=== PATIENT | female | born 1960 | race Caucasian/White ===

== ENCOUNTER 2016-06-29 10:39 | Emergency (ER) | payer BC, OTHER ==
[~2016-06-29] VITALS: Ht 157.5 cm; Wt 80.5 kg
[2016-06-29 10:42] VITALS: Ht 157.5 cm; Wt 80.5 kg
[2016-06-29] MEDS ORDERED: ALBUTEROL 0.5% (NEB) 2.5 MG/0.5 ML AMP INH STA (10:48)
[2016-06-29] MEDS ORDERED: predniSONE 20 MG TAB PO STA (10:48)
[2016-06-29] MEDS ORDERED: IPRATROPIUM (NEB) 0.5 MG/2.5 ML AMP INH STA (10:48)
--- NOTE | 2016-06-29 11:21 | RADRPT ---
PROCEDURE: Chest x-ray CLINICAL INDICATION: Asthma TECHNIQUE: Chest single view COMPARISON: None FINDINGS: The heart is normal in size. The pulmonary vessels are normal in caliber. There is a questionable 6 mm right upper lung nodule. Lungs otherwise clear. The costophrenic angles are sharp. The visua lized bony thorax is unremarkable. IMPRESSION: 1. Questionable 6 mm right upper lung nodule. Recommend a follow-up study. If this density persis ts it should be further evaluated with chest CT. 2. Otherwise no acute cardiopulmonary disease RPTAT: HH .Hema Poe MD, Date Time Electronically viewed and signed by .Hema Poe MD, on 06/29/2016 11:21 .W/
[2016-06-29] MEDS ORDERED: ALBU8.5H3 INH (11:44)
--- NOTE | 2016-06-29 11:44 | ERD ---
ER Documentation Chief Complaint Date/Time DATE: 06/29/16 TIME: 11:40 Chief Complaint SOB AFTER "INHALING A LOT OF BLEACH" WHILE CLEANINGAPPROX 45 MINUTES AGO HPI This is a [age]-year-old female who presents to the emergency room for evaluation of mild shortness of breath. The patient states that she was cleaning a trash can and put bleach in the trash can and states that she was inhaling bleach and began to feel short of breath. She denies any headache, nausea or vomiting associated with this and came to the ER for evaluation of her shortness of breath. She denies any aggravating or relieving factors. ROS All systems reviewed and are negative except as per history of present illness. Medications Home Meds No Active Prescriptions or Reported Meds Allergies Allergies: Coded Allergies: No Known Allergy (Unverified , 06/29/16) PMhx/Soc Medical and Surgical Hx: Unable to obtain Hx Alcohol Use: Yes Hx Substance Use: No Hx Tobacco Use: No Smoking Status: Never smoker Physical Exam Vitals Vital Signs Date Time Temp Pulse Resp B/P Pulse Ox O2 Delivery O2 Flow Rate FiO2 06/29/16 10:55 85 20 Nasal Cannula 2.0 06/29/16 10:55 98 2.0 06/29/16 10:52 Nasal Cannula 2.0 06/29/16 10:42 98.3 87 24 181/88 95 Physical Exam Const: No acute distress Head: Atraumatic Eyes: Normal Conjunctiva ENT: Normal External Ears, Nose and Mouth. Neck: Full range of motion..~ No meningismus. Resp: Clear to auscultation bilaterally Cardio: Regular rate and rhythm, no murmurs Abd: Soft, non tender, non distended. Normal bowel sounds Skin: No petechiae or rashes Back: No midline or flank tenderness Ext: No cyanosis, or edema Neur: Awake and alert Psych: Normal Mood and Affect Results 24 hrs Current Medications Medications (Trade) Dose Ordered Sig/[place] Route PRN Reason Start Time Stop Time Status Last Admin Dose Admin Albuterol (Proventil 0.5% (Neb)) 10 mg ONCE STAT INH 06/29/16 10:48 06/29/16 10:50 DC 06/29/16 10:55 Ipratropium [place] (Atrovent 0.02% (Neb)) 1 mg ONCE STAT INH 06/29/16 10:48 06/29/16 10:50 DC 06/29/16 10:55 Prednisone (Prednisone) 60 mg ONCE STAT PO 06/29/16 10:48 06/29/16 10:50 DC 06/29/16 11:00 Procedures/MDM Chest X-ray 1V Interpreted by me: Soft Tissue: No acute abnormalities Bones: No acute abnormalities Mediastinum/Cardiac Silhouette/Lungs: Pulmonary nodule This 55-year-old female presents to the emergency room for evaluation of shortness of breath after coming in contact with fumes from bleach. When I evaluated her she had no wheezing however given her complaint of shortness of breath she was given a breathing treatment with albuterol, Atrovent. Chest x- ray is clear with a pulmonary nodule, and she feels much better after receiving a breathing treatment and p.o. prednisone. This patient will be discharged home with a prescription for ProAir inhaler as I feel she does have minor pneumonitis secondary to chemical exposure. She is not hypoxic and in no respiratory distress. Departure Diagnosis: Primary Impression: Inhalation injury Additional Impression: Acute chemical pneumonitis Condition: Stable PATRICIA PETER DO Jun 29, 2016 11:44
== END 2016-06-29 11:54 | disposition home or self-care (01) ==
LOC: E/R 10:39
DX: T54.3X1A Toxic effect of corrosive alkalis and alkali-like substances, accidental (unintentional), initial encounter (principal); J68.0 Bronchitis and pneumonitis due to chemicals, gases, fumes and vapors
CPT/HCPCS: 71010; 94644; J7512; Z7502; Z7610